=== PATIENT | male | born 1970 | race Caucasian/White ===

== ENCOUNTER → 2016-08-17 | Outpatient (CLI) | payer BC ==
[2016-08-17 12:59] LABS: ALT 78 U/L (21-72); AST 38 U/L (17-59); Alkaline Phosphatase 68 U/L (38-126); Anion Gap 11 mmol/L; Blood Urea Nitrogen 16 mg/dL (9-20); Calcium 9.3 mg/dL (8.4-10.2); Carbon Dioxide 29 mmol/L (22-30); Chloride 102 mmol/L (98-107); Glucose 92 mg/dL (74-99); Non-African American GFR(MDRD) >60 (>60 ml/min/1.73 sqM); Potassium 4.5 mmol/L (3.5-5.1); Sodium 142 mmol/L (137-145); Total Bilirubin 0.8 mg/dL (0.2-1.3); Total Protein 7.4 g/dL (6.3-8.2)
[2016-08-17 14:00] LABS: Basophils % (A) 1 %; CH 29.3; CHCM 34.5; Eosinophils # (A) 0.2 k/uL (0-0.7); Eosinophils % (A) 4 %; HCT 43.3 % (39.0-53.0); HDW 2.86; HGB 14.4 gm/dL (13.0-17.5); Luc # (Auto) 0.25; Luc % (Auto) 4; Lymphocytes # (A) 1.2 k/uL (1.0-4.8); Lymphocytes % (A) 21 %; MCH 28.4 pg (25.0-35.0); MCHC 33.3 g/dL (31.0-37.0); MCV 85.2 fL (80.0-100.0); Mean Platelet Volume 7.6; Monocytes # (A) 0.5 k/uL (0-1.0); Monocytes % (A) 8 %; Neutrophils # (A) 3.6 k/uL (1.3-7.7); Neutrophils % (A) 63 %; RBC 5.08 m/uL (4.30-5.90); RDW 12.6 % (11.5-15.5); WBC 5.7 k/uL (3.8-10.6); WBC (Perox) 5.75
== END | disposition home or self-care (01) ==
LOC: LABWHC1 12:12
PROVIDERS: ATTEND Family Medicine
DX: G24.3 Spasmodic torticollis (principal); D66 Hereditary factor VIII deficiency
CPT/HCPCS: 36415; 80053; 84443; 85025; 85379

== ENCOUNTER → 2018-09-05 | Outpatient (CLI) | payer BC ==
--- NOTE | 2018-09-06 11:03 | XR ---
Limited cervical spine HISTORY: Chronic left-sided neck pain 3 views of the cervical spine Cervical vertebral bodies show preserved height, alignment, and bone mineralization. Disc spaces and prevertebral soft tissues are normal. C7-T1 is not well seen. No fracture or subluxation. IMPRESSION: Normal cervical spine.
== END ==
LOC: RADXRMAIN 15:16
PROVIDERS: ATTEND Family Medicine
DX: G89.29 Other chronic pain (principal); M54.2 Cervicalgia
CPT/HCPCS: 72040

== ENCOUNTER → 2019-12-02 | Outpatient (CLI) | payer BC ==
--- NOTE | 2019-12-02 12:44 | US ---
EXAMINATION TYPE: US venous doppler duplex LE DATE OF EXAM: 12/02/2019 11:46 AM COMPARISON: NONE CLINICAL HISTORY: R79.1. Elevated D Dimer SIDE PERFORMED: Bilateral TECHNIQUE: The lower extremity deep venous system is examined utilizing real time linear array sonog seda with graded compression, doppler sonography and color-flow sonography. VESSELS IMAGED: External Iliac Vein (EIV) Common Femoral Vein Deep Femoral Vein Greater Saphenous Vein * Femoral Vein Popliteal Vein Small Saphenous Vein * Proximal Calf Veins (* superficial vessels) Right Leg: Negative for DVT Left Leg: Negative for DVT IMPRESSION: 1. No diagnostic evidence of DVT as visualized. 2. The shadowing in the popliteal fossa which obscures the image limits assessment of the region. Pop liteal fossa cyst not excluded. If symptoms are posterior consider follow-up MRI knee.
--- NOTE | 2019-12-02 12:46 | CT ---
EXAMINATION TYPE: CT angio chest DATE OF EXAM: 12/02/2019 COMPARISON: NONE HISTORY: Chest tightness and abnormal labs. CT DLP: 486.9 mGycm. Automated Exposure Control for Dose Reduction was Utilized. CONTRAST: CTA scan of the thorax is performed with IV Contrast, patient injected with 100 mL of Isovue 370, pul monary embolism protocol. MIP Images are created on CT scanner and reviewed. FINDINGS: LUNGS: There are scattered predominantly right-sided peripheral micronodules that are 1 to 2 mm. The lungs are grossly clear, there is no concerning parenchymal mass or nodule identified. There is no pleural effusion or pneumothorax seen. Dependent subsegmental atelectasis bilaterally. The tracheobr onchial tree is patent. MEDIASTINUM: There is satisfactory enhancement of the pulmonary artery and its branches, there is no CT evidence for pulmonary embolism. Multiple enlarged mediastinal lymph nodes are seen. For incidenta lly right hilar lymph node on image 64 measures 1.2 cm in short axis as does the subcarinal lymph nod e on the same image. A right paratracheal lymph node on image 52 measures 1.1 cm. Multiple other prom inent and enlarged mediastinal and hilar lymph nodes are seen. No cardiomegaly or pericardial effusi on is seen. Strand-like density the anterior superior mediastinum most commonly relates to residual t hymic tissue. Mild coronary artery calcifications. OTHER: Upper abdominal viscera are essentially unenhanced given phase of contrast. Old fracture defor mities of the lateral margin of ribs 3 through 7. Mild multilevel degenerative change of the spine. IMPRESSION: 1. No CT evidence of pulmonary embolus. 2. Mediastinal adenopathy and numerous 1 to 2 mm pulmonary nodules. Primary consideration is for sarc oidosis although other etiology such as lymphoma, pneumoconioses, granulomatous diseases or atypical infections such as fungal infections are possible. 3. Mild coronary calcifications, a marker of coronary artery disease.
== END | disposition home or self-care (01) ==
LOC: RADCTMAIN 11:13
PROVIDERS: ATTEND Family Medicine
DX: R79.1 Abnormal coagulation profile (principal); R91.8 Other nonspecific abnormal finding of lung field; R50.9 Fever, unspecified; I25.10 Atherosclerotic heart disease of native coronary artery without angina pectoris
CPT/HCPCS: 93970; 71275; Q9967

== ENCOUNTER → 2019-12-08 | Outpatient (CLI) | payer BC ==
--- NOTE | 2019-12-08 15:27 | P.STRESS ---
- Stress Test Note Stress Test Results/Findings: Exam Performed: stress echo exercise Exam Date: 12/08/19 Reason for Exam: Chest Pain Height: 5 ft 10 in Weight: 225 kg Protocol: Dhruv Stage: 5 Duration of Exercise: 12:40 Resting Heart Rate: 68 Resting Blood Pressure: 114/82 Maximum Achieved Heart Rate: 171 Maximum Achieved Blood Pressure: 178/61 85% PMHR: 146 100% PMHR: 172 METS: 12.7 Technologist Comment: Stress Test Results/Findings: Baseline heart rate 68 beats a minute, Baseline blood pressure 114/52 mmHg Patient exercised on a Dhruv protocol for 12 minutes 40 seconds Baseline 12-lead ECG shows sinus rhythm with normal ST segments There was no ECG is for ischemia No arrhythmias are noted Normal blood pressure response to exercise Baseline 2-D echo images showed normal LV systolic function without segmental wall motion abnormalities At peak exercise is excellent augmentation of oral LV contractility with outdoorsman any wall motion abnormalities @Recovery regional global LV systolic function remained normal Impression Good exercise capacity no ECG or echocardiographic evidence for ischemia
== END | disposition home or self-care (01) ==
LOC: RADNMMAIN 09:55
PROVIDERS: ATTEND Family Medicine
DX: R07.9 Chest pain, unspecified (principal)
CPT/HCPCS: 93351

== ENCOUNTER → 2020-06-18 | Outpatient (CLI) | payer BC ==
--- NOTE | 2020-06-18 09:20 | CT ---
EXAMINATION TYPE: CT chest w con DATE OF EXAM: 06/18/2020 COMPARISON: 12/02/2019 HISTORY: 49-year-old male undergoing Right Upper Chest pain x 1 month TECHNIQUE: Contiguous axial scanning of the chest after the administration of 100 mL of Isovue 300. Coronal/sagittal reconstructions performed. CT DLP: 511.1mGycm. Automatic exposure control utilized for a dose reduction. FINDINGS: Heart normal size without pericardial effusion. Aorta normal caliber with conventional arch was a branching anatomy. The previous mediastinum and hilar lymph nodes show improvement. Residual borderline size 9 mm right hilar lymph node remains. Stable stranding anterior mediastinal soft tissue density, likely some resi dual thymic tissue. There is dependent groundglass atelectasis in the posterior aspect of the lungs. Mild diffuse bronchi al wall thickening. A band of atelectasis right lower lobe. No consolidation or pleural effusion. Imp rovement in the previous numerous 1 to 2 mm pulmonary nodules. Visualized upper abdomen shows no gross abnormality. Mild to moderate degenerative disc disease throughout the thoracic spine. IMPRESSION: 1. Mild diffuse bronchial wall thickening could reflect bronchitis or asthma. Areas of dependent atel ectasis are noted. Otherwise, no acute pulmonary process. 2. Resolution of the previous mediastinal hilar lymphadenopathy as well as the numerous scattered 1 t o 2 mm pulmonary nodules. Correlate for any interval treatment. A 9 mm borderline sized right hilar l ymph node remains but is also improved from prior.
== END | disposition home or self-care (01) ==
LOC: RADCTMAIN 08:19
PROVIDERS: ATTEND Family Medicine
DX: R59.9 Enlarged lymph nodes, unspecified (principal); R91.8 Other nonspecific abnormal finding of lung field
CPT/HCPCS: 71260; Q9967

== ENCOUNTER 2021-05-30 17:27 | Emergency (ER) | payer BC ==
[2021-05-30] MEDS ORDERED: ACETAMINOPHEN TAB 325 MG TAB PO STA (20:54)
[2021-05-30] MEDS ORDERED: IBUPROFEN 600 MG TAB PO STA (20:54)
[2021-05-30] MEDS ORDERED: SODIUM CHLORIDE 0.9% 50 ML IVPB ONE (22:00)
--- NOTE | 2021-05-30 22:00 | ED ---
General Adult HPI - General Chief complaint: Headache Stated complaint: Sore Throat/weak Time Seen by Provider: 05/30/21 20:54 Source: patient, RN notes reviewed Mode of arrival: ambulatory Limitations: no limitations - History of Present Illness Initial comments: A she is a 50-year-old male that presents to the emergency department complaining of fever, chills and fatigue for the past several days. He denied being tested for Covid recently. Patienthad a sinus type headache along with his other symptoms. He denied any alleviating or aggravating factors. He can emergency room to get evaluated. He denied any chest pain shortness of breath nausea vomiting diarrhea constipation fever fatigue chills. - Related Data Home Medications Medication Instructions Recorded Confirmed Ibuprofen [Motrin] 400 mg PO Q6HR PRN 03/04/15 03/04/15 Allergies Allergy/AdvReac Type Severity Reaction Status Date / Time Penicillins AdvReac Rash/Hives Verified 05/30/21 20:34 sulfamethoxazole AdvReac Rash/Hives Verified 05/30/21 20:34 [From Bactrim] trimethoprim [From Bactrim] AdvReac Rash/Hives Verified 05/30/21 20:34 Review of Systems ROS Statement: Those systems with pertinent positive or pertinent negative responses have been documented in the HPI. ROS Other: All systems not noted in ROS Statement are negative. Past Medical History Past Medical History: Blood Disorder, Syncope Additional Past Medical History / Comment(s): See Dr. Cordero's H & P for CARDIAC HX. PT STATES HE MAY HAVE FACTOR V LEINDEN-THERE IS A STRONG FAMILY HX OF DISORDER PER PT History of Any Multi-Drug Resistant Organisms: None Reported Past Surgical History: Orthopedic Surgery, Tonsillectomy Additional Past Surgical History / Comment(s): lt ankle sx Past Anesthesia/Blood Transfusion Reactions: No Reported Reaction Past Psychological History: No Psychological Hx Reported Smoking Status: Never smoker Past Alcohol Use History: Occasional Past Drug Use History: None Reported - Past Family History Father Family Medical History: Cancer General Exam Limitations: no limitations General appearance: alert, in no apparent distress, obese Head exam: Present: atraumatic, normocephalic, normal inspection Eye exam: Present: normal appearance, PERRL, EOMI. Absent: scleral icterus, conjunctival injection, periorbital swelling ENT exam: Present: normal exam, mucous membranes moist Neck exam: Present: normal inspection Respiratory exam: Present: normal lung sounds bilaterally. Absent: respiratory distress, wheezes, rales, rhonchi, stridor Cardiovascular Exam: Present: regular rate, normal rhythm, normal heart sounds. Absent: systolic murmur, diastolic murmur, rubs, gallop, clicks Extremities exam: Present: normal inspection, full ROM, normal capillary refill. Absent: tenderness, pedal edema, joint swelling, calf tenderness Neurological exam: Present: alert, oriented X3 Psychiatric exam: Present: normal affect, normal mood Skin exam: Present: warm, dry, intact, normal color. Absent: rash Course Vital Signs 05/30/21 20:29 Temperature 100.2 F H Pulse Rate 91 Respiratory 22 Rate Blood Pressure 137/86 O2 Sat by Pulse 97 Oximetry Medical Decision Making - Medical Decision Making 50-year-old male complaining of sinus headache fever chills and fatigue. Covid test ordered. Covid test positive. 650 mg of Tylenol ordered for fever. Patient does meet criteria for monoclonal antibody infusion and wishes to undergo. Patient is agreeable with discharge home after infusion. Case discussed with Dr. Mccollum. - Lab Data Lab Results 05/30/21 Range/Units 21:07 Coronavirus (PCR) Detected A (Not Detectd) Disposition Clinical Impression: COVID Disposition: HOME SELF-CARE Condition: Stable Instructions (If sedation given, give patient instructions): Coronavirus Disease 2019 (COVID-19) Additional Instructions: Please return to the Emergency Department if symptoms worsen or any other concerns. Quarantine per CDC guidelines. Take Tylenol and Motrin alternating every 3 hours for fever. Is patient prescribed a controlled substance at d/c from ED?: No Referrals: Rio Ruth MD [Primary Care Provider] - 1-2 days Time of Disposition: 21:59
[2021-05-30] MEDS ORDERED: BAMLANIVIMAB (EUA) 700 MG, ETESEVIMAB (EUA) 1,400 MG in SODIUM CHLORIDE 0.9% 50 ML IVPB ONE (22:30)
[2021-05-31 01:05] VITALS: BP 125/81; PULSE 67; RESP 16; TEMP 98.6
== END 2021-05-31 01:13 | disposition home or self-care (01) ==
LOC: EC 17:27
DX: U07.1 COVID-19 (principal); Z88.0 Allergy status to penicillin; Z88.2 Allergy status to sulfonamides; Z88.1 Allergy status to other antibiotic agents; Z90.89 Acquired absence of other organs
CPT/HCPCS: 99284; 96365; 87635; J3490

== ENCOUNTER → 2022-05-19 | Outpatient (CLI) | payer BC ==
[2022-05-19 10:44] LABS: Basophils # (A) 0.05 X 10*3/uL (0.00-0.10); Basophils % (A) 1.2 %; Eosinophils # (A) 0.19 X 10*3/uL (0.04-0.35); Eosinophils % (A) 4.4 %; HCT 47.8 % (39.6-50.0); HGB 15.8 g/dL (13.0-17.0); Immature Grans, Automated 0.5 %; Lymphocytes # (A) 0.91 X 10*3/uL (0.90-5.00); Lymphocytes % (A) 21.2 %; MCH 28.3 pg (27.0-32.0); MCHC 33.1 g/dL (32.0-37.0); MCV 85.7 fL (80.0-97.0); Mean Platelet Volume 11.6 fL (9.5-12.2); Monocytes # (A) 0.51 X 10*3/uL (0.20-1.00); Monocytes % (A) 11.9 %; NRBC Per 100 WBC 0 /100 WBCS (0.0-0.0); Neutrophils # (A) 2.61 X 10*3/uL (1.80-7.70); Neutrophils % (A) 60.8 %; Platelet Count 258 X 10*3/uL (140-440); RBC 5.58 X 10*6/uL (4.40-5.60); RDW 12.3 % (11.5-14.5); WBC 4.29 X 10*3/uL (4.50-10.00)
[2022-05-19 11:00] LABS: ALT 34 U/L (10-49); AST 20 U/L (14-35); African American GFR (CKD) 90.2 (60.0-200.0); Albumin 4.6 g/dL (3.8-4.9); Alkaline Phosphatase 65 U/L (41-126); BUN/Creat Ratio 14.64 Ratio (12.00-20.00); Blood Urea Nitrogen 16.1 mg/dL (9.0-27.0); Calcium 9.5 mg/dL (8.7-10.3); Carbon Dioxide 24.6 mmol/L (20.0-27.5); Chloride 106 mmol/L (96-109); Globulin 2.7 g/dL (1.6-3.3); Glucose 105 mg/dL (70-110); Non-African American GFR(CKD) 77.9 (60.0-200.0); Potassium 5.2 mmol/L (3.5-5.5); Sodium 141 mmol/L (135-145); Total Protein 7.3 g/dL (6.2-8.2)
[2022-05-19 11:01] LABS: Chol/HDL Ratio 5.41 Ratio; LDL Cholesterol,Calculated 177.4 mg/dL (0.0-131.0); VLDL Calculation 18.22 mg/dL (5.00-40.00)
== END | disposition home or self-care (01) ==
LOC: LABWHC1 07:04
PROVIDERS: ATTEND Family Medicine
DX: Z00.00 Encounter for general adult medical examination without abnormal findings (principal); Z12.5 Encounter for screening for malignant neoplasm of prostate
CPT/HCPCS: 36415; 80053; 80061; 83036; 84153; 84443; 85025